=== PATIENT | male | born 1985 | race Caucasian/White ===

== ENCOUNTER 2021-03-19 20:10 | Emergency (ER) | payer MEDICAID ==
[~2021-03-19] VITALS: Ht 162.6 cm; Wt 74.0 kg
[2021-03-19] MEDS ORDERED: IBUP-2029 MT (21:42)
[2021-03-19] MEDS ORDERED: ACETAMINOPHEN 325MG TABLET PO ONE (21:45)
[2021-03-19] MEDS ORDERED: IBUPROFEN 600MG TABLET PO ONE (21:45)
[2021-03-19 21:58] VITALS: BP 116/66
== END 2021-03-19 22:00 | disposition home or self-care (01) ==
LOC: ER 20:10
DX: B34.9 Viral infection, unspecified (principal)
CPT/HCPCS: 99283

== ENCOUNTER 2021-12-29 13:13 | Emergency (ER) | payer MEDICAID, OTHER ==
[~2021-12-29] VITALS: Ht 162.6 cm; Wt 73.0 kg
[~2021-12-29 13:13] MED LIST: IBUP-2029 MT
[2021-12-29] MEDS ORDERED: TETANUS, DIPHTHERIA, PERTUSSIS VAC/PF 0.5ML (>10YR OLD) IM ONE (13:45)
[2021-12-29] MEDS ORDERED: LIDOCAINE HCL/PF 1% 10 MG/ML 5ML VIAL INFIL ONE (13:45)
[2021-12-29] MEDS ORDERED: BACITRACIN ZINC OINT UDPKT TOP ONE (13:45)
[2021-12-29] MEDS ORDERED: ACETAMINOPHEN WITH CODEINE 300/30MG TABLET PO ONE (13:45)
[2021-12-29 14:52] VITALS: BP 141/67
== END 2021-12-29 14:53 | disposition home or self-care (01) ==
LOC: ER 13:29
DX: S01.01XA Laceration without foreign body of scalp, initial encounter (principal); W01.0XXA Fall on same level from slipping, tripping and stumbling without subsequent striking against object, initial encounter; Y93.89 Activity, other specified; Y92.89 Other specified places as the place of occurrence of the external cause; Y99.8 Other external cause status
CPT/HCPCS: 12002; 90471; 90715; 99283; J3490

== ENCOUNTER 2022-01-05 10:09 | Emergency (ER) | payer OTHER ==
[~2022-01-05] VITALS: Ht 165.1 cm; Wt 73.0 kg
[2022-01-05] MEDS ORDERED: KETOROLAC 30MG/ML VIAL IM ONE (12:45)
[2022-01-05 13:03] VITALS: BP 141/87
== END 2022-01-05 13:14 | disposition home or self-care (01) ==
LOC: ER 10:09
DX: R51.9 Headache, unspecified (principal); R11.0 Nausea
CPT/HCPCS: 70450; 96372; 99284; J1885

== ENCOUNTER 2022-01-10 13:06 | Emergency (ER) | payer OTHER ==
[~2022-01-10] VITALS: Ht 165.1 cm; Wt 73.0 kg
[2022-01-10 13:14] VITALS: BP 129/79
== END 2022-01-10 13:42 | disposition home or self-care (01) ==
LOC: ER 13:06
DX: S01.81XD Laceration without foreign body of other part of head, subsequent encounter (principal); X58.XXXD Exposure to other specified factors, subsequent encounter
CPT/HCPCS: 99281

== ENCOUNTER 2022-06-19 20:28 | Emergency (ER) | payer OTHER ==
[~2022-06-19] VITALS: Ht 165.1 cm; Wt 73.0 kg
[2022-06-19 20:56] VITALS: BP 130/84
[2022-06-19] MEDS: FLUORESCEIN SODIUM 1MG/STRIP LEFTEYE ONE (22:45)
[2022-06-19] MEDS: TETRACAINE 0.5% OPHTH DROPS 4ML LEFTEYE ONE (22:45)
[2022-06-19] MEDS: BALANCED SALT IRRIG SOLN 15ML IR ONE (22:45)
[2022-06-20] MEDS ORDERED: NAPR-681 PO (00:32)
[2022-06-20] MEDS ORDERED: POLY15DR31 EACHEYE (00:32)
[2022-06-20] MEDS: IBUPROFEN 600MG TABLET PO STA (00:40)
== END 2022-06-20 00:49 | disposition home or self-care (01) ==
LOC: ER 20:28
DX: S00.12XA Contusion of left eyelid and periocular area, initial encounter (principal); X58.XXXA Exposure to other specified factors, initial encounter; Y93.89 Activity, other specified; Y92.89 Other specified places as the place of occurrence of the external cause; Y99.8 Other external cause status; H53.9 Unspecified visual disturbance
CPT/HCPCS: 99284